=== PATIENT | male | born 1950 | race Caucasian/White ===

== ENCOUNTER 2017-01-12 10:21 | Outpatient (CLI) | payer OTHER, MEDICARE ==
[2017-01-12 11:07] LABS: ALT (SGPT) 21 U/L (0-55); AST (SGOT) 17 U/L (5-34); Albumin 4.1 g/dL (3.4-4.8); Alkaline Phosphatase 77 U/L (40-150); Anion Gap 12 mmol/L (10-20); BUN (Urea Nitrogen) 18 mg/dL (8.4-25.7); Bilirubin, Total 0.5 mg/dL (0.2-1.2); Calc. Creatinine Clearance 0 mL/min (70-130); Calcium 8.8 mg/dL (7.8-10.44); Carbon Dioxide 23 mmol/L (23-31); Cardiac Risk 5.1 (Less than 4.5); Chloride 110 mmol/L (98-107); Cholesterol 177 mg/dL (< 200 Desired); Estimated GFR-MDRD Greater than 90; Glucose 101 mg/dL (80-115); HDL Cholesterol 35 mg/dL (>60 Neg Risk); LDL Cholesterol, Calculated 119 mg/dL; Potassium 3.9 mmol/L (3.5-5.1); Protein, Total 6.1 g/dL (5.8-8.1); Sodium 141 mmol/L (136-145); Triglycerides 116 mg/dL (Less than 150)
[2017-01-12 11:29] LABS: PSA-Asymptomatic (SCREENING) 0.77 ng/mL (0-4.0); Thyroid Stimulating Hormone 1.7158 uIU/mL (0.35-4.94)
== END 2017-01-12 10:22 | disposition home or self-care (01) ==
LOC: MADLABBHPM 10:21
PROVIDERS: ATTEND Family Medicine
DX: Z12.5 Encounter for screening for malignant neoplasm of prostate (principal); Z79.899 Other long term (current) drug therapy
CPT/HCPCS: 36415; 80053; 80061; 84443; G0103

== ENCOUNTER 2017-01-27 09:32 | Outpatient (CLI) | payer OTHER, MEDICARE ==
--- NOTE | 2017-01-27 10:21 | RAD ---
RIGHT SHOULDER THREE VIEWS: History: 66-year-old male with right shoulder pain. FINDINGS: AC joint arthrosis changes are noted. No fracture or dislocation. IMPRESSION: No fracture or dislocation. AC joint arthrosis. POS: OFF
== END 2017-01-27 09:33 | disposition home or self-care (01) ==
LOC: MADRAD 09:32
PROVIDERS: ATTEND Family Medicine
DX: M25.511 Pain in right shoulder (principal)

== ENCOUNTER 2019-05-30 08:07 | Outpatient (CLI) | payer MEDICARE ==
--- NOTE | 2019-05-30 08:32 | RAD ---
XR Knee Lt 3 View History: Pain Comparison: None. Findings: Moderate tricompartmental degenerative changes. Small-moderate joint effusion. No acute fra cture or malalignment. Impression: Moderate degenerative change. No acute osseous abnormality.
--- NOTE | 2019-05-30 08:32 | RAD ---
XR Knee Rt 3 View History: Chronic pain Comparison: None. Findings: Tricompartmental joint space narrowing with osteophyte formation. No acute fracture or sammy lignment. Small joint effusion. Impression: Moderate degenerative changes. No acute osseous abnormality.
== END 2019-05-30 08:08 | disposition home or self-care (01) ==
LOC: MADRAD 08:07
PROVIDERS: ATTEND Family Medicine
DX: M25.561 Pain in right knee (principal); M25.562 Pain in left knee; G89.29 Other chronic pain; M17.0 Bilateral primary osteoarthritis of knee

== ENCOUNTER 2019-06-12 08:43 | Outpatient (CLI) | payer MEDICARE ==
--- NOTE | 2019-06-12 10:05 | ULT ---
ULTRASOUND RETROPERITONEUM LIMITED: (ABDOMINAL AORTA) DATE: 06/12/2019 HISTORY: 68-year-old male for screening for abdominal aortic aneurysm. FINDINGS: The caliber of the mid and distal abdominal aorta is within normal limits. The proximal abdominal aor ta is obscured by shadowing from bowel gas. IMPRESSION: No abdominal aortic aneurysm identified, but the proximal abdominal aorta is not visualized.
== END 2019-06-12 08:44 | disposition home or self-care (01) ==
LOC: MADULT 08:43
PROVIDERS: ATTEND Family Medicine
DX: Z13.6 Encounter for screening for cardiovascular disorders (principal)
CPT/HCPCS: 76775

== ENCOUNTER 2019-06-23 09:41 | Emergency (ER) | payer MEDICARE ==
[2019-06-23 10:24] LABS: #Basophils 0.1 thou/uL (0.0-0.2); #Eosinphils 0.4 thou/uL (0.0-0.7); #Lymphocytes 2.8 thou/uL (1.20-3.40); #Monocytes 0.8 thou/uL (0.11-0.59); #Neutrophils 7.5 thou/uL (1.40-6.50); %Basophils 0.9 % (0.0-1.0); %Eosinophils 3.5 % (0.0-10.0); %Monocytes 6.7 % (0.0-10.0); %Neutrophils 64.9 % (42.0-75.0); Hemoglobin 14.7 g/dL (14.0-18.0); Mean Corpuscular HGB CONC 34.7 g/dL (32.0-36.0); Mean Corpuscular Hemoglobin 32.7 pg (27.0-31.0); Mean Corpuscular Volume 94.3 fL (78.0-98.0); Mean Platelet Volume 6.2 fL (7.4-10.4); Platelet Count 230 thou/uL (130-400); RBC Distribution Width 10.5 % (11.5-14.5); Red Blood Cell (RBC) Count 4.51 mill/uL (4.70-6.10); White Blood Cell (WBC) Count 11.5 thou/uL (4.8-10.8)
--- NOTE | 2019-06-23 10:32 | RAD ---
FRONTAL RADIOGRAPH CHEST: Date: 06/23/19 COMPARISON: 05/17/16. HISTORY: Chest pain. FINDINGS: Heart and mediastinal contours are unremarkable. No pneumothorax, pleural fluid, focal consolidation, or alveolar edema. IMPRESSION: No acute findings. POS: OFF
[2019-06-23 10:37] LABS: ALT (SGPT) 32 U/L (8-55); AST (SGOT) 16 U/L (5-34); Albumin 4.1 g/dL (3.4-4.8); Alkaline Phosphatase 81 U/L (40-150); Anion Gap 11 mmol/L (10-20); BUN (Urea Nitrogen) 21 mg/dL (8.4-25.7); Bilirubin, Total 0.6 mg/dL (0.2-1.2); CK (CPK) 29 U/L (30-200); Calc. Creatinine Clearance 0 mL/min (70-130); Calcium 8.7 mg/dL (7.8-10.44); Carbon Dioxide 24 mmol/L (23-31); Chloride 106 mmol/L (98-107); Estimated GFR-MDRD 64; Globulin 2.1 g/dL (2.4-3.5); Glucose 99 mg/dL (80-115); Potassium 4.1 mmol/L (3.5-5.1); Protein, Total 6.2 g/dL (5.8-8.1); Sodium 137 mmol/L (136-145)
== END 2019-06-23 11:40 | disposition short-term general hospital (02) ==
LOC: MADERS 09:41
DX: R00.1 Bradycardia, unspecified (principal); I10 Essential (primary) hypertension; Z79.899 Other long term (current) drug therapy
CPT/HCPCS: 71045; 80053; 82550; 83880; 84484; 85025; 93005; 94760

== ENCOUNTER 2020-03-30 02:27 | Emergency (ER) | payer MEDICARE ==
[2020-03-30 03:20] LABS: #Basophils 0.1 thou/uL (0.0-0.2); #Eosinphils 0.2 thou/uL (0.0-0.7); #Lymphocytes 1.7 thou/uL (1.20-3.40); #Monocytes 0.4 thou/uL (0.11-0.59); %Eosinophils 1.8 % (0.0-10.0); %Lymphocytes 20.1 % (21.0-51.0); %Monocytes 5.3 % (0.0-10.0); %Neutrophils 71.9 % (42.0-75.0); Hemoglobin 14.6 g/dL (14.0-18.0); Mean Corpuscular HGB CONC 32.9 g/dL (32.0-36.0); Mean Corpuscular Hemoglobin 31.5 pg (27.0-31.0); Mean Corpuscular Volume 95.6 fL (78.0-98.0); Mean Platelet Volume 6.2 fL (7.4-10.4); Platelet Count 210 thou/uL (130-400); RBC Distribution Width 10.7 % (11.5-14.5); Red Blood Cell (RBC) Count 4.65 mill/uL (4.70-6.10); White Blood Cell (WBC) Count 8.3 thou/uL (4.8-10.8)
[2020-03-30] MEDS ORDERED: Morphine 2 MG/ML SYRINGE ONE (03:22)
[2020-03-30] MEDS ORDERED: Ondansetron PF 4 MG/2 ML Vial ONE (03:23)
[2020-03-30] MEDS ORDERED: Sodium Chloride 0.9% 1,000 ML ONE (03:23)
[2020-03-30 03:46] LABS: ALT (SGPT) 22 U/L (8-55); AST (SGOT) 17 U/L (5-34); Albumin 4.3 g/dL (3.4-4.8); Alkaline Phosphatase 76 U/L (40-110); Anion Gap 15 mmol/L (10-20); BUN (Urea Nitrogen) 15 mg/dL (8.4-25.7); Bilirubin, Total 0.4 mg/dL (0.2-1.2); Calc. Creatinine Clearance 0 mL/min (70-130); Calcium 9.4 mg/dL (7.8-10.44); Carbon Dioxide 26 mmol/L (23-31); Chloride 106 mmol/L (98-107); Estimated GFR-MDRD 73; Globulin 2.1 g/dL (2.4-3.5); Glucose 125 mg/dL (80-115); Lipase 11 U/L (8-78); Protein, Total 6.4 g/dL (5.8-8.1); Sodium 143 mmol/L (136-145)
--- NOTE | 2020-03-30 10:23 | CT ---
PRELIMINARY REPORT/[facility]/EMERGENCY AFTER HOURS PROCEDURE EXAM: CT Abdomen and Pelvis Without Intravenous Contrast CLINICAL HISTORY: RUQ PAIN TECHNIQUE: Axial computed tomography images of the abdomen and pelvis without intravenous contrast. CONTRAST: None. COMPARISON: None provided. FINDINGS: LUNG BASES: No basilar airspace consolidation or pleural effusion. LIVER: Unremarkable. GALLBLADDER AND BILE DUCTS: Dependent, calcified gallstones. No ductal dilation. PANCREAS: Unremarkable. SPLEEN: Unremarkable. ADRENAL GLANDS: Unremarkable. KIDNEYS, URETERS, AND BLADDER: Nonobstructing punctate stone right renal midpole. Parapelvic right r enal cyst. No ureteral or bladder calculi. STOMACH AND BOWEL: No obstruction. No wall thickening. No CT evidence of colitis or acute diverticuli tis. APPENDIX: No CT evidence for appendicitis. PERITONEUM: No free fluid. No free air. LYMPH NODES: No lymphadenopathy. REPRODUCTIVE: Unremarkable as visualized. VASCULATURE: No aortic aneurysm. ABDOMINAL WALL AND SOFT TISSUES: Unremarkable. BONES: No fracture or suspicious osseous abnormality. IMPRESSION: Cholelithiasis without CT evidence for complications of cholecystitis. Nonobstructing pun ctate stone right renal midpole. Parapelvic right renal cyst. There is a calcification posterior to the bladder that I favor is a phlebolith. This does not have the appearance of a UVJ stone and ther e is no right hydroureteronephrosis. ELECTRONICALLY SIGNED BY: Tanya Alvarado MD Mar 30, 2020 4:25:35 AM CDT FINAL REPORT CT ABDOMEN AND PELVIS PERFORMED WITHOUT CONTRAST ENHANCEMENT: HISTORY: Right-sided abdomen pain. FINDINGS: The lung bases are clear of any infiltrative process. The liver, spleen, and pancreas regions are unremarkable. Increased attenuation within the gallbladd er appears to represent small stones. No gallbladder wall thickening. Right and left adrenal glands and right and left kidneys are normal in size. Punctate nonobstructing right renal calculus is seen in the upper and lower pole region. No left-sided calculi. There is w hat appears to be a parapelvic cyst on the right. No ureteral calculi. No significant periaortic or mesenteric adenopathy. CT OF PELVIS PERFORMED WITHOUT CONTRAST ENHANCEMENT: The appendix is normal. No adenopathy, mass, or free fluid. IMPRESSION: 1. Small gallstones. 2. Punctate nonobstructing right renal calculi. 3. This report is in agreement with the temporary report issued by [facility].
== END 2020-03-30 03:45 | disposition short-term general hospital (02) ==
LOC: MADERS 02:27
DX: R10.11 Right upper quadrant pain (principal); Z79.899 Other long term (current) drug therapy; Z79.82 Long term (current) use of aspirin
CPT/HCPCS: 74176; 80053; 83605; 83690; 84484; 85025; 93005; 96374; 96375; J2270; J2405; J7050

== ENCOUNTER 2020-04-13 04:48 | Emergency (ER) | payer MEDICARE ==
[2020-04-13] MEDS ORDERED: Morphine 4 MG/ML VIAL ONE ×2 (05:18→07:18)
[2020-04-13] MEDS ORDERED: Sodium Chloride 0.9% 1,000 ML ONE (05:19)
[2020-04-13] MEDS ORDERED: Ondansetron PF 4 MG/2 ML Vial ONE ×2 (05:19→07:18)
[2020-04-13] MEDS ORDERED: Ketorolac Tromethamine 30 MG/ML VIAL ONE (05:19)
[2020-04-13 06:22] LABS: #Basophils 0.1 thou/uL (0.0-0.2); #Eosinphils 0.2 thou/uL (0.0-0.7); #Lymphocytes 1.7 thou/uL (1.20-3.40); #Monocytes 0.7 thou/uL (0.11-0.59); %Monocytes 8.5 % (0.0-10.0); %Neutrophils 66.4 % (42.0-75.0); ALT (SGPT) 426 U/L (8-55); AST (SGOT) 224 U/L (5-34); Albumin 4.3 g/dL (3.4-4.8); Alkaline Phosphatase 180 U/L (40-110); Anion Gap 13 mmol/L (10-20); BUN (Urea Nitrogen) 16 mg/dL (8.4-25.7); Bilirubin, Total 4.6 mg/dL (0.2-1.2); CK (CPK) 51 U/L (30-200); Calc. Creatinine Clearance 0 mL/min (70-130); Calcium 9.3 mg/dL (7.8-10.44); Carbon Dioxide 26 mmol/L (23-31); Chloride 103 mmol/L (98-107); Estimated GFR-MDRD 69; Globulin 2.4 g/dL (2.4-3.5); Glucose 107 mg/dL (80-115); Hemoglobin 13.9 g/dL (14.0-18.0); Lipase 515 U/L (8-78); Mean Corpuscular HGB CONC 32.7 g/dL (32.0-36.0); Mean Corpuscular Hemoglobin 31.3 pg (27.0-31.0); Mean Corpuscular Volume 95.8 fL (78.0-98.0); Mean Platelet Volume 6.2 fL (7.4-10.4); Platelet Count 272 thou/uL (130-400); Potassium 3.9 mmol/L (3.5-5.1); Protein, Total 6.7 g/dL (5.8-8.1); RBC Distribution Width 10.8 % (11.5-14.5); Red Blood Cell (RBC) Count 4.44 mill/uL (4.70-6.10); Sodium 138 mmol/L (136-145); White Blood Cell (WBC) Count 7.5 thou/uL (4.8-10.8)
--- NOTE | 2020-04-13 12:07 | CT ---
CT OF THE ABDOMEN AND PELVIS WITH IV CONTRAST: INDICATION: History of recent cholecystectomy with lower abdominal pain. COMPARISON: Noncontrast CT of the abdomen and pelvis dated 03/30/2020. FINDINGS: There is bibasilar atelectasis. There has been interval cholecystectomy. A small amount of inflammatory reticulation is seen within the gallbladder fossa. No large drainable fluid collection is evident. The pancreas, adrenal glands , liver, spleen, and kidneys are unchanged. Right nephrolithiasis is similar-appearing. No free flu id or enlarged lymph nodes are evident. Mild joann mesentery is stable-appearing. There is a normal appendix in the right lower quadrant. Unopacified large and small bowel appear wit hin normal limits. The bladder, rectum, and perirectal are unremarkable-appearing. There is scattered degenerative and osteoarthritic change. No acute osseous abnormality is evident. IMPRESSION: 1. Interval cholecystectomy. 2. Stable right nephrolithiasis. 3. Stable mild joann central mesentery. POS: BH
[2020-04-13] MEDS ORDERED: Iopamidol 370 76% 100 ML VIAL ONE (12:16)
== END 2020-04-13 07:30 | disposition short-term general hospital (02) ==
LOC: MADERS 04:48
DX: K85.10 Biliary acute pancreatitis without necrosis or infection (principal); I10 Essential (primary) hypertension; Z79.899 Other long term (current) drug therapy
CPT/HCPCS: 74177; 80053; 82550; 83690; 84484; 85025; 93005; 96361; 96374; 96375; 96376; J1885; J2270; J2405; J7050; Q9967

== ENCOUNTER 2021-06-08 12:31 | Emergency (ER) | payer MEDICARE | END 2021-06-08 14:00 | disposition home or self-care (01) | LOC: MADERS 12:31 | DX: S20.211A Contusion of right front wall of thorax, initial encounter (principal); I10 Essential (primary) hypertension; Z79.899 Other long term (current) drug therapy; W19.XXXA Unspecified fall, initial encounter ==

== ENCOUNTER 2022-04-11 10:48 | Emergency (ER) | payer MEDICARE | END 2022-04-11 11:21 | disposition home or self-care (01) | LOC: MADERS 10:48 | DX: K43.9 Ventral hernia without obstruction or gangrene (principal); I10 Essential (primary) hypertension; Z79.899 Other long term (current) drug therapy | CPT/HCPCS: 99283 ==

== ENCOUNTER 2022-06-20 21:58 | Emergency (ER) | payer MEDICARE ==
[2022-06-20] MEDS ORDERED: Lactated Ringer's 1,000 ML ONE (22:34)
[2022-06-20] MEDS ORDERED: Ketorolac Tromethamine 30 MG/ML VIAL ONE (22:34)
[2022-06-20] MEDS ORDERED: Ondansetron PF 4 MG/2 ML Vial ONE (22:42)
[2022-06-20 22:43] LABS: #Basophils 0.1 thou/uL (0.0-0.2); #Eosinphils 0.2 thou/uL (0.0-0.7); #Lymphocytes 2.3 thou/uL (1.20-3.40); #Monocytes 0.5 thou/uL (0.11-0.59); #Neutrophils 3.9 thou/uL (1.40-6.50); %Basophils 1.5 % (0.0-1.0); %Eosinophils 2.5 % (0.0-10.0); %Lymphocytes 33.6 % (21.0-51.0); %Monocytes 6.8 % (0.0-10.0); %Neutrophils 55.7 % (42.0-75.0); Hemoglobin 13.6 g/dL (14.0-18.0); Mean Corpuscular HGB CONC 34.2 g/dL (32.0-36.0); Mean Corpuscular Hemoglobin 32.8 pg (27.0-31.0); Platelet Count 199 thou/uL (130-400); RBC Distribution Width 10.5 % (11.5-14.5); Red Blood Cell (RBC) Count 4.13 mill/uL (4.70-6.10); White Blood Cell (WBC) Count 6.9 thou/uL (4.8-10.8)
[2022-06-20 23:34] LABS: Bilirubin Negative (Negative); Blood, Urine Large (Negative); Clarity Clear (Clear); Glucose, Urine (Dipstick) Negative (Negative); Ketone, Urine Negative (Negative); Leukocyte Negative (Negative); Nitrite Negative (Negative); Protein, Urine (Dipstick) Trace mg/dL (Neg-Trace); Urobilinogen 0.2 mg/dL (Less than 2); pH, Urine 5.5 (5.0-9.0)
[2022-06-20 23:34] LABS: ALT (SGPT) 20 U/L (8-55); AST (SGOT) 16 U/L (5-34); Albumin 4.2 g/dL (3.4-4.8); Alkaline Phosphatase 77 U/L (40-110); Anion Gap 16 mmol/L (10-20); BUN (Urea Nitrogen) 21 mg/dL (8.4-25.7); Bilirubin, Total 0.7 mg/dL (0.2-1.2); Calc. Creatinine Clearance 0 mL/min (70-130); Calcium 9.4 mg/dL (7.8-10.44); Carbon Dioxide 23 mmol/L (23-31); Chloride 106 mmol/L (98-107); Estimated GFR 75; Globulin 1.9 g/dL (2.4-3.5); Glucose 99 mg/dL (83-110); Lipase 13 U/L (8-78); Magnesium 2.1 mg/dL (1.6-2.6); Potassium 4.2 mmol/L (3.5-5.1); Protein, Total 6.1 g/dL (5.8-8.1); Sodium 141 mmol/L (136-145)
[2022-06-20 23:38] LABS: Specific Gravity, Urine 1.036 (1.002-1.036)
[2022-06-20 23:39] LABS: Squamous Epithelial 0-3 HPF (0-3)
== END 2022-06-20 23:57 | disposition home or self-care (01) ==
LOC: MADERS 21:58
DX: N13.2 Hydronephrosis with renal and ureteral calculous obstruction (principal); I49.8 Other specified cardiac arrhythmias; I10 Essential (primary) hypertension; Z79.899 Other long term (current) drug therapy
CPT/HCPCS: 74176; 80053; 81003; 81015; 83605; 83690; 83735; 85025; 93005; 94760; 96374; 96375; J1885; J2405; J7120

== ENCOUNTER 2022-07-05 11:07 | Emergency (ER) | payer MEDICARE ==
[2022-07-05] MEDS ORDERED: Morphine 4 MG/ML VIAL ONE (12:38)
[2022-07-05] MEDS ORDERED: Sodium Chloride 0.9% 1,000 ML ONE (12:38)
[2022-07-05 12:41] LABS: #Basophils 0.1 thou/uL (0.0-0.2); #Eosinphils 0.1 thou/uL (0.0-0.7); #Lymphocytes 1.2 thou/uL (1.20-3.40); #Monocytes 0.4 thou/uL (0.11-0.59); #Neutrophils 7.7 thou/uL (1.40-6.50); %Basophils 0.6 % (0.0-1.0); %Eosinophils 0.6 % (0.0-10.0); %Lymphocytes 12.5 % (21.0-51.0); %Monocytes 4.4 % (0.0-10.0); Hemoglobin 13.3 g/dL (14.0-18.0); Mean Corpuscular HGB CONC 33.1 g/dL (32.0-36.0); Mean Corpuscular Hemoglobin 31.9 pg (27.0-31.0); Mean Corpuscular Volume 96.2 fL (78.0-98.0); Mean Platelet Volume 6.7 fL (7.4-10.4); Platelet Count 174 thou/uL (130-400); RBC Distribution Width 10.6 % (11.5-14.5); Red Blood Cell (RBC) Count 4.16 mill/uL (4.70-6.10); White Blood Cell (WBC) Count 9.4 thou/uL (4.8-10.8)
[2022-07-05 12:53] LABS: Bilirubin Negative (Negative); Blood, Urine Large (Negative); Clarity Clear (Clear); Glucose, Urine (Dipstick) Negative (Negative); Ketone, Urine Trace mg/dL (Negative); Leukocyte Negative (Negative); Nitrite Negative (Negative); Protein, Urine (Dipstick) 30 mg/dL (Neg-Trace); Specific Gravity, Urine 1.043 (1.002-1.036); Urobilinogen 0.2 mg/dL (Less than 2); pH, Urine 5.5 (5.0-9.0)
[2022-07-05 12:54] LABS: Bacteria/HPF Rare-Few HPF (None Seen); RBC/HPF 21-50 HPF (0-3); Squamous Epithelial 0-3 HPF (0-3); WBC/HPF 0-3 HPF (0-3)
[2022-07-05 12:56] LABS: ALT (SGPT) 22 U/L (8-55); AST (SGOT) 17 U/L (5-34); Albumin 4.1 g/dL (3.4-4.8); Alkaline Phosphatase 72 U/L (40-110); Anion Gap 12 mmol/L (10-20); BUN (Urea Nitrogen) 16 mg/dL (8.4-25.7); Calc. Creatinine Clearance 0 mL/min (70-130); Calcium 9.2 mg/dL (7.8-10.44); Carbon Dioxide 24 mmol/L (23-31); Chloride 107 mmol/L (98-107); Estimated GFR 74; Globulin 2.1 g/dL (2.4-3.5); Glucose 116 mg/dL (83-110); Lipase 46 U/L (8-78); Potassium 3.8 mmol/L (3.5-5.1); Protein, Total 6.2 g/dL (5.8-8.1); Sodium 139 mmol/L (136-145)
[2022-07-05] MEDS ORDERED: Morphine 2 MG/ML VIAL ONE (13:44)
== END 2022-07-05 14:16 | disposition home or self-care (01) ==
LOC: MADERS 11:07
DX: N13.2 Hydronephrosis with renal and ureteral calculous obstruction (principal); I10 Essential (primary) hypertension; Z79.899 Other long term (current) drug therapy
CPT/HCPCS: 74176; 80053; 83690; 85025; 96374; 96376; 99284; J2270; 81003; 81015; J7050

== ENCOUNTER 2022-09-08 15:39 | Outpatient (CLI) | payer MEDICARE | END 2022-09-08 15:40 | disposition home or self-care (01) | LOC: MADCT 15:39 | PROVIDERS: ATTEND Urology | DX: N20.2 Calculus of kidney with calculus of ureter (principal) | CPT/HCPCS: 74176 ==

== ENCOUNTER 2022-12-05 08:56 | Outpatient (CLI) | payer MEDICARE | END 2022-12-05 08:57 | disposition home or self-care (01) | LOC: MADULT 08:56 | PROVIDERS: ATTEND Urology | DX: N20.0 Calculus of kidney (principal) | CPT/HCPCS: 76770 ==

== ENCOUNTER 2023-08-14 22:18 | Emergency (ER) | payer MEDICARE ==
[2023-08-14] MEDS ORDERED: valACYclovir 500 MG TAB PO SCH (23:00)
== END 2023-08-14 23:01 | disposition home or self-care (01) ==
LOC: MADERS 22:18
DX: B02.9 Zoster without complications (principal); I10 Essential (primary) hypertension; I49.3 Ventricular premature depolarization; Z79.82 Long term (current) use of aspirin; Z79.899 Other long term (current) drug therapy
CPT/HCPCS: 99282

== ENCOUNTER 2023-10-03 11:39 | Emergency (ER) | payer MEDICARE | END 2023-10-03 12:53 | disposition home or self-care (01) | LOC: MADERS 11:39 | DX: U07.1 COVID-19 (principal); I10 Essential (primary) hypertension; Z79.899 Other long term (current) drug therapy | CPT/HCPCS: 71046 ==

== ENCOUNTER 2024-08-26 18:15 | Emergency (ER) | payer MEDICARE | END 2024-08-26 19:14 | disposition home or self-care (01) | LOC: MADERS 18:15 | DX: L03.114 Cellulitis of left upper limb (principal); I10 Essential (primary) hypertension; Z79.82 Long term (current) use of aspirin | CPT/HCPCS: 99283 ==

== ENCOUNTER 2025-07-12 13:24 | Emergency (ER) | payer MEDICARE ==
[2025-07-12] MEDS ORDERED: Ibuprofen 600 MG TAB ONE (13:41)
== END 2025-07-12 14:28 | disposition home or self-care (01) ==
LOC: MADERS 13:24
DX: S22.42XA Multiple fractures of ribs, left side, initial encounter for closed fracture (principal); I10 Essential (primary) hypertension; Z79.899 Other long term (current) drug therapy; W01.0XXA Fall on same level from slipping, tripping and stumbling without subsequent striking against object, initial encounter